=== PATIENT | male | born 1970 | race Caucasian/White ===

== ENCOUNTER → 2021-02-21 08:44 | Outpatient (CLI) | payer OTHER, SELFPAY ==
[2021-02-21 21:19] LABS: SARS-CoV-2 RNA PCR Positive
== END ==
PROVIDERS: PCP Family Medicine; Visit Provider Nurse Practitioner Family
DX: U07.1 COVID-19 (principal); R68.89 Other general symptoms and signs
CPT/HCPCS: C9803; U0003; U0005

== ENCOUNTER 2022-09-06 07:41 | Outpatient (CLI) | payer OTHER, SELFPAY ==
--- NOTE | ~2022-09-06 | US_ITS ---
Abdominal Sonogram: Real-time sonographic imaging of the abdomen was performed. Clinical History: Abdominal pain Findings: The liver appears mildly echogenic, with no evidence of mass lesion or bile duct dilatatio n. Main portal vein demonstrates normal direction of flow. The spleen is normal in size without evide nce of focal lesion. The gallbladder is well distended, and appears normal with no evidence of galls tone or wall thickening. The common bile duct measures 3 mm. The visualized pancreas, aorta, and IVC are unremarkable. The right kidney measures 10.3 cm in length and the left kidney measures 10.2 cm. There is no hydronephrosis or renal calculus. Impression: Probable diffuse fatty infiltration of liver. Reviewed, dictated and finalized at location M. Impression: Probable diffuse fatty infiltration of liver.
== END 2022-09-06 07:42 ==
PROVIDERS: PCP Family Medicine; Visit Provider Family Medicine
DX: R10.31 Right lower quadrant pain (principal)
CPT/HCPCS: 76700